=== PATIENT | male | born 1985 | race Hispanic/Latino ===

== ENCOUNTER 2022-02-26 23:54 | Emergency (ER) | payer OTHER, SELFPAY ==
[2022-02-27 00:56] LABS: #Eosinphils 0.3 10x3/uL (0.0-0.5); #Monocytes 0.7 10x3/uL (0.0-1.1); #Neutrophils 5.2 10x3/uL (1.5-8.4); %Basophils 0.5 % (0.0-2.0); %Monocytes 8.4 % (0.0-10.0); %Neutrophils 63.7 % (40.0-75.0); Hemoglobin 14.7 g/dL (13.5-17.5); Mean Corpuscular HGB CONC 34.3 g/dL (32.0-36.0); Mean Corpuscular Hemoglobin 29.5 pg (27.0-33.0); Mean Platelet Volume 9.8 fl (7.4-10.4); Platelet Count 304 10x3/uL (150-450); RBC Distribution Width 11.8 % (11.5-14.5); Red Blood Cell (RBC) Count 4.99 10x6/uL (4.32-5.72); White Blood Cell (WBC) Count 8.2 10x3/uL (3.5-10.5)
[2022-02-27 01:10] LABS: ALT (SGPT) 52 U/L (8-55); AST (SGOT) 34 U/L (5-34); Albumin 4.6 g/dL (3.5-5.0); Alkaline Phosphatase 79 U/L (40-110); Anion Gap 15 mmol/L (10-20); BUN (Urea Nitrogen) 14 mg/dL (8.9-20.6); Bilirubin, Total 1.1 mg/dL (0.2-1.2); Calc. Creatinine Clearance 0 mL/min (70-130); Calcium 9.8 mg/dL (7.8-10.44); Carbon Dioxide 24 mmol/L (22-29); Chloride 105 mmol/L (98-107); Glucose 94 mg/dL (70-105); Potassium 4.1 mmol/L (3.5-5.1); Protein, Total 7.6 g/dL (6.0-8.3); Sodium 140 mmol/L (136-145)
== END 2022-02-27 01:45 | disposition home or self-care (01) ==
LOC: CSHERS 23:54
DX: R07.89 Other chest pain (principal); R55 Syncope and collapse; J45.909 Unspecified asthma, uncomplicated
CPT/HCPCS: 36415; 71045; 80053; 84484; 85025; 93005

== ENCOUNTER 2023-08-05 22:52 | Emergency (ER) | payer SELFPAY ==
[2023-08-05 23:43] LABS: SARS-CoV-2 NAA Rapid Test Not Detected (NotDetected)
== END 2023-08-06 00:47 | disposition home or self-care (01) ==
LOC: CSHERS 22:52
DX: J06.9 Acute upper respiratory infection, unspecified (principal); H92.02 Otalgia, left ear; Z20.822 Contact with and (suspected) exposure to COVID-19
CPT/HCPCS: 71045; 93005